=== PATIENT | male | born 1970 | race Caucasian/White ===

== ENCOUNTER 2021-09-01 19:55 | Emergency (ER) | payer SELFPAY ==
[~2021-09-01] VITALS: Ht 177.8 cm; Wt 127.3 kg
[2021-09-02 04:20] VITALS: BP 205/119
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
[2021-09-02] MEDS ORDERED: OXYMETAZOLINE 0.05% NASAL SPRAY 30ML BOTTLE. NS ONE (06:30)
== END 2021-09-02 06:10 | disposition home or self-care (01) ==
LOC: ER 19:55 → EEVIPCON 19:55 → ER 09-02 06:10
DX: S02.2XXA Fracture of nasal bones, initial encounter for closed fracture (principal); H92.03 Otalgia, bilateral; R51.9 Headache, unspecified; M54.2 Cervicalgia; Z88.2 Allergy status to sulfonamides; Z88.6 Allergy status to analgesic agent; Z88.8 Allergy status to other drugs, medicaments and biological substances; Y08.89XA Assault by other specified means, initial encounter; Y93.89 Activity, other specified; Y92.89 Other specified places as the place of occurrence of the external cause; Y99.8 Other external cause status
CPT/HCPCS: 70450; 70486; 72125; 99284-25